=== PATIENT | male | born 1945 | race Caucasian/White ===

== ENCOUNTER → 2018-11-30 | Outpatient (CLI) | payer MEDICARE ==
[~2018-11-30] MED LIST: REGADENOSON 0.4 MG/5 ML DISP.SYRIN. IV ONE
--- NOTE | 2018-11-30 13:26 | PCVCIMAG ---
APPROVED REPORT Imaging Protocol: Rest Tc-99m/Stress Tc-99m 1 day Study performed: 11/30/2018 09:12:33 Indication: Dyspnea Patient Location: Out-Patient Stress Nurse: Harriett Anne RN, Harriett Anne RN [place] Tech:Laura PackROCHELLE moMT Ht: 5 ft 9 in Wt: 200 lbs BSA: 2.07 m2 HR: 63 bpm BP: 169/79 mmHg BMI: 29.5 Rhythm: Sinus Rhythm, nonspecific ST-T abnormalities Medical History Medical History: COPD, Hyperlipidemia, HTN, Diabetes Medications: Ventolin, Metformin, Simvastatin, Lisinopril, Glipizide Allergies: No known drug allergies Cardiac Risk Factors: Age Pretest Chest Pain Characteristics: No chest pain Exercise History: Physically active Resting Data Rest SPECT myocardial perfusion imaging was performed in supine position 45 minutes following the intravenous injection of 10.4 mCi of Tc-99m Sestamibi. Time of rest injection: 914 Date: 11/30/2018 Administration Route: IV Administration Site: Right Hand Pharmacologic Stress Pharmacologic stress test was performed by injecting Regadenoson 0.4 mg IV push over 10-15 seconds immediately followed by the intravenous injection of 34.5 mCi of Tc-99m Sestamibi. Time of stress injection: 0 Date: 11/30/2018 Administration Route: IV Administration Site: Right Hand Gated Stress SPECT was performed 45 minutes after stress injection. The images were gated to evaluate regional wall motion and calculate left ventricular ejection fraction. Stress Test Details Stress Test: Pharmacologic stress testing performed using 0.4 mg of regadenoson per 5 mL given IV over 10 seconds. Reason for pharmacologic stress test: COPD. HRMax Heart Rate (APMHR): 149 bpm Resting HR: 63 bpmTarget HR (85% APMHR): 126 bpm Max HR Achieved: 91 bpm % of APMHR: 61 Recovery HR: 81 bpm BP Resting BP: 169/79 mmHg Max BP: 160/83 mmHg Recovery BP: 153/84 mmHg ECG Resting ECG: Sinus Rhythm, nonspecific ST-T abnormalities Stress ECG: Sinus Rhythm, nonspecific ST-T abnormalities Arrhythmia: None Recovery ECG: Sinus Rhythm, nonspecific ST-T abnormalities Clinical Reason for Termination: Completed protocol Stress Symptoms: Abdominal discomfort, Dyspnea Exercise duration: 0 min 55 sec Symptoms resolved during recovery. Stress ECG Conclusion 1. Adequate response to intravenous Lexiscan 2. Inadequate heart rate for ECG diagnosis Study Data Post stress, the left ventricular ejection was 60%.. SSS: 8 SRS: 1 SDS: 7 TID = 1.14. Perfusion There is a medium area of moderately reduced uptake in the mid and apical segment of the inferolateral wall which is seen on the stress images and improves on the resting images. This area thickens and moves normally and is most consistent with ischemia. Nuclear Conclusion ECG Findings: non-diagnostic Clinical Findings: negative for ischemia Nuclear Findings: positive for ischemia Exercise Capacity: not assessed Left Ventricular Function: normal 1. Intermediate to high risk study with evidence of inducible ischemia involving the inferolateral wall including the apical portion 2. Post exercise left ventricular ejection fraction of 60% without wall motion abnormalities Interpreted by: Kerri Scott MD Electronically Approved: 11/30/2018 13:25:45 <Conclusion> 1. Adequate response to intravenous Lexiscan 2. Inadequate heart rate for ECG diagnosis
--- NOTE | 2018-11-30 17:02 | PCVCIMAG ---
APPROVED REPORT Study performed: 11/30/2018 13:55:22 EXAM: Comprehensive 2D, Doppler, and color-flow Echocardiogram Patient Location: Echo lab Status: routine BSA: 2.02 HR: 70 bpmBP: 167/79 mmHg Rhythm: NSR Other Information Study Quality: Good Risk Factors: Cardiac Risk Factors: HTN, Hyperlipidemia Indications Murmur, Abnormal stress test 2D Dimensions IVSd: 13.21 (7-11mm)LVOT Diam: 22.58 (18-24mm) LVDd: 44.63 mm PWd: 12.37 (7-11mm)Ascending Ao: 35.38 (22-36mm) LVDs: 29.60 (25-40mm) Left Atrium: 38.29 (27-40mm) Aortic Root: 26.49 mm LV Single Plane 4CH: 67.05 % LV Single Plane 2CH: 55.79 % Biplane EF: 62.0 % Volumes Left Atrial Volume (Systole) Single Plane 4CH: 44.44 mLSingle Plane 2CH: 36.07 mL LA ESV Index: 22.00 mL/m2 Aortic Valve AoV Peak Gwyn.: 1.71 m/s AO Peak Gr.: 11.65 mmHg Mitral Valve E/A Ratio: 1.1 MV Decel. Time: 220.69 ms MV E Max Gwyn.: 0.88 m/s MV A Gwyn.: 0.81 m/s TDI E/Lateral E': 8.00E/Medial E': 9.78 Medial E' Gwyn.: 0.09 m/s Lateral E' Gwyn.: 0.11 m/s Pulmonary Valve PV Peak Gr.: 3.20 mmHg Pulmonary Vein P Vein S: 0.55 m/sP Vein A: 0.34 m/s P Vein D: 0.46 m/sP Vein A Dur.: 103.8 msec P Vein S/D Ratio: 1.20 Left Ventricle The left ventricle is normal size. There is normal LV segmental wall motion. There is normal left ventricular wall thickness. Left ventricular systolic function is normal. The left ventricular ejection fraction is within the normal range. LVEF is 60-65%. The left ventricular diastolic function is normal. Right Ventricle The right ventricle is normal size. The right ventricular systolic function is normal. Atria The left atrium size is normal. The right atrium size is normal. Aortic Valve The aortic valve is normal in structure. No aortic regurgitation is present. There is no aortic valvular stenosis. Mitral Valve The mitral valve is normal in structure. There is no mitral valve regurgitation noted. No evidence of mitral valve stenosis. Tricuspid Valve The tricuspid valve is normal in structure. There is no tricuspid valve regurgitation noted. Pulmonic Valve The pulmonary valve is normal in structure. There is no pulmonic valvular regurgitation. Great Vessels The aortic root is normal in size. IVC is normal in size and collapses >50% with inspiration. Pericardium There is no pericardial effusion. <Conclusion> The left ventricle is normal size. LVEF is 60-65%. The left ventricular diastolic function is normal. The right ventricle is normal size. The left atrium size is normal. The aortic valve is normal in structure. There is no mitral valve regurgitation noted. There is no tricuspid valve regurgitation noted. The aortic root is normal in size. There is no pericardial effusion.
== END | disposition home or self-care (01) ==
LOC: PCVCIMAG 09:15
PROVIDERS: ATTEND Internal Medicine Cardiovascular Disease
DX: I10 Essential (primary) hypertension (principal); R06.00 Dyspnea, unspecified; R01.1 Cardiac murmur, unspecified; R06.02 Shortness of breath; J44.9 Chronic obstructive pulmonary disease, unspecified; E11.9 Type 2 diabetes mellitus without complications; E78.00 Pure hypercholesterolemia, unspecified; R53.83 Other fatigue; R94.39 Abnormal result of other cardiovascular function study; E78.5 Hyperlipidemia, unspecified; R94.31 Abnormal electrocardiogram [ECG] [EKG]; Z79.899 Other long term (current) drug therapy
CPT/HCPCS: 36415; 78452; 80061; 93005; 93017; 93306; A9500; G0463; J2785

== ENCOUNTER → 2019-01-04 | Outpatient (CLI) | payer MEDICARE | END | disposition home or self-care (01) | LOC: PCVCCLINIC 13:20 | PROVIDERS: ATTEND Internal Medicine Cardiovascular Disease | DX: I25.10 Atherosclerotic heart disease of native coronary artery without angina pectoris (principal); E78.00 Pure hypercholesterolemia, unspecified; I10 Essential (primary) hypertension; J44.9 Chronic obstructive pulmonary disease, unspecified; E11.9 Type 2 diabetes mellitus without complications | CPT/HCPCS: 36415; 80061; 93005; G0463 ==

== ENCOUNTER → 2019-07-14 | Outpatient (CLI) | payer MEDICARE | END | disposition home or self-care (01) | LOC: PCVCCLINIC 11:30 | PROVIDERS: ATTEND Internal Medicine Cardiovascular Disease | DX: I25.10 Atherosclerotic heart disease of native coronary artery without angina pectoris (principal); E78.00 Pure hypercholesterolemia, unspecified; I10 Essential (primary) hypertension; E11.9 Type 2 diabetes mellitus without complications; J44.9 Chronic obstructive pulmonary disease, unspecified; Z79.82 Long term (current) use of aspirin; Z79.899 Other long term (current) drug therapy | CPT/HCPCS: 36415; 80061; 93005; G0463 ==